=== PATIENT | female | born 1935 | race Caucasian/White ===

== ENCOUNTER 2017-04-14 19:19 | Emergency (ER) | payer OTHER, MEDICARE ==
--- NOTE | 2017-04-14 19:26 | PDOC ---
History of Present Illness - General History Source: Patient Exam Limitations: No Limitations - History of Present Illness Initial Comments: 04/14/17 20:34 A portion of this note was documented by scribe services under my direction. I have reviewed the details of the note, within reason, and agree with the documentation. The case summary and management plan written by me. Procedure note laceration repair: Total length of laceration 5 cm Laceration was anesthetized with 1% lidocaine no epinephrine Laceration was irrigated with approximately 200 mL normal saline using a Zerowet under pressure Laceration was closed with a total of 6 cori Bacitracin and sterile dressing were applied patient tolerated well. Assessment and plan: This is an 81-year-old female who comes in with a laceration of her left lower leg laterally. Laceration was cleaned and closed with cori. Patient is otherwise healthy Patient given suture care instructions and will return or see her primary care doctor in 10 days to have the cori removed <Hesham Bah I - Last Filed: 04/14/17 20:53> - General History Source: Patient Exam Limitations: No Limitations - History of Present Illness Initial Comments: 04/14/17 20:46 The patient is a 81 year old female, with a significant past medical history of arthritis and hypercholesterolemia, who presents to the emergency department with LLE laceration after being hit by a car door around 2:00pm. She reports at the time of injury having a profuse bleeding which was alleviated with bandages and tissues. She denies any significant pain at this time. She denies any pain with weight bearing activities. She denies recent fevers, chills, headache or dizziness. She denies recent nausea, vomit, diarrhea or constipation. She denies recent dysuria, frequency, urgency or hematuria. She denies recent chest pain or shortness of breath. Patient is not up to date on tetanus shot. PAST MEDICAL HISTORY: See HPI PAST SURGICAL HISTORY: No significant history. FAMILY HISTORY: No pertinent history. SOCIAL HISTORY: Patient lives with family and is retired. MEDICATIONS: Reviewed. ALLERGIES: As per nursing notes. ROS General: No fevers or chills, no weakness, no weight loss HEENT: No change in vision. No sore throat. No ear pain CardioVascular: No chest pain or shortness of breath Respiratory:No cough, or wheezing. Gastrointestinal: No nausea, vomiting, diarrhea or constipation. No rectal bleeding Genitourinary: No dysuria, hematuria, or frequency Musculoskeletal: No joint or muscle pain or swelling Neurologic: No headache, vertigo, dizziness or loss of consciousness Psychiatric: No depression Skin: +LE laceration. No rashes or easy bruising Endocrine: no increased thirst or abnormal weight change Allergic: no skin or latex allergy All other systems reviewed and normal PE GENERAL: The patient is awake, alert, and fully oriented, in no acute distress. HEAD: Normal with no signs of trauma. EYES: Pupils equal, round and reactive to light, extraocular movements intact, sclera anicteric, conjunctiva clear. EXTREMITIES: Proximately 5cm laceration crescent shape laceration on the LLE. No visible maceration of the tissue and no bleeding at time of evaluation. No bony tenderness. NVI. NEUROLOGICAL: Normal speech, normal gait. PSYCH: Normal mood, normal affect. SKIN: Warm, Dry, normal turgor, no rashes or lesions noted. <James Lawton - Last Filed: 04/14/17 20:54> - General Chief Complaint: Laceration Stated Complaint: laceration to the left lower leg Time Seen by Provider: 04/14/17 19:25 Past History - Past Medical History Cardiac Disorders: Yes Hypercholesterolemia: Yes - Suicide/Smoking/Psychosocial Hx Smoking History: Never smoked Hx Alcohol Use: No Substance Use Type: None <Hesham Bah I - Last Filed: 04/14/17 20:53> <James Lawton - Last Filed: 04/14/17 20:54> - Past Medical History Allergies/Adverse Reactions: Allergies Allergy/AdvReac Type Severity Reaction Status Date / Time No Known Allergies Allergy Verified 07/01/14 19:42 Home Medications: Ambulatory Orders Aspirin [ASA -] 81 mg PO DAILY 07/01/14 Atorvastatin Ca [Lipitor] 40 mg PO HS 07/01/14 Diltiazem [Cardizem -] 120 mg PO DAILY 07/01/14 Folic Acid 1 mg PO DAILY 07/01/14 Methotrexate Sodium [Methotrexate] 2.5 mg PO DAILY 07/01/14 Omeprazole [Prilosec] 20 mg PO DAILY 07/01/14 Prednisone [Deltasone -] 2 mg PO DAILY 01/19/15 *Physical Exam - Vital Signs Last Vital Signs Temp Pulse Resp BP Pulse Ox 98.1 F 80 18 138/62 98 04/14/17 19:26 04/14/17 19:26 04/14/17 19:26 04/14/17 19:26 04/14/17 19:26 <James Lawton - Last Filed: 04/14/17 20:54> *DC/Admit/Observation/Transfer - Discharge Dispostion Admit: No <Hesham Bah I - Last Filed: 04/14/17 20:53> - Attestations Scribe Attestion: 04/14/17 20:46 Documentation prepared by James Lawton, acting as medical associate for Hesham Bah MD. <James Lawton - Last Filed: 04/14/17 20:54> Diagnosis at time of Disposition: Laceration of left leg Qualifiers: Encounter type: initial encounter Qualified Code(s): S81.812A - Laceration without foreign body, left lower leg, initial encounter - Discharge Dispostion Disposition: HOME Condition at time of disposition: Stable - Patient Instructions Printed Discharge Instructions: DI for Laceration Repair Additional Instructions: Remove the Band-Aid in 24 hours clean with some peroxide and reapply some bacitracin. Re-bandage for another 24 hours after 48 hours you can leave it open and just apply some antibiotic ointment to it once or twice a day until it is healed. Do not get the laceration wet for 72 hours Staple removal in 10 days. You can return here or see her primary care doctor for staple removal. Return to the emergency department immediately with ANY new, persistent or worsening symptoms. Continue any medications as previously prescribed by your physician. You should follow up with your primary doctor as soon as possible regarding today's emergency department visit. . Please make sure your doctor reviews the results of your emergency evaluation. Thank you for coming to the Emergency Department today for your care. It was a pleasure to see you today. Please note that your evaluation is INCOMPLETE until you follow-up with your doctor.
[2017-04-14 19:37] VITALS: BP 138/62; PULSE 80; TEMP 98.1; BMI 18.8
[2017-04-14] MEDS ORDERED: DIPHTH,PERTUSS(ACELL),TET 0.5 ML DISP.SYRIN IM ONE (20:45)
== END 2017-04-14 20:56 | disposition home or self-care (01) ==
LOC: FER 19:19
PROC: 0HQLXZZ Repair Left Lower Leg Skin, External Approach (ICD-10-PCS; principal; 2017-04-14)
DX: S81.812A Laceration without foreign body, left lower leg, initial encounter (principal); W20.8XXA Other cause of strike by thrown, projected or falling object, initial encounter; Y93.9 Activity, unspecified; Y92.9 Unspecified place or not applicable; E78.00 Pure hypercholesterolemia, unspecified; I51.9 Heart disease, unspecified
CPT/HCPCS: 90715; 99281-25